=== PATIENT | female | born 1990 | race Caucasian/White ===

== ENCOUNTER 2016-08-14 20:47 | Emergency (ER) | payer OTHER ==
[~2016-08-14] VITALS: Ht 154.9 cm; Wt 65.3 kg
[~2016-08-14 20:47] MED LIST: COLA100C3 PO; IBUP60TA PO; IBUP80TA PO; PERCOCET PO; PRENTAB55 PO; TUMS500C PO
[2016-08-14 20:57] VITALS: BP 123/79
[2016-08-14] MEDS ORDERED: ASPI325T PO (21:03)
[2016-08-14] MEDS ORDERED: MULTCAP11 PO (21:03)
[2016-08-14] MEDS ORDERED: PRED20TA PO (22:43)
== END 2016-08-14 22:55 | disposition home or self-care (01) ==
LOC: M ED 21:42
DX: G56.02 Carpal tunnel syndrome, left upper limb (principal); N18.9 Chronic kidney disease, unspecified; Z86.718 Personal history of other venous thrombosis and embolism; Z88.1 Allergy status to other antibiotic agents

== ENCOUNTER 2016-09-04 17:04 | Emergency (ER) | payer OTHER ==
[~2016-09-04] VITALS: Ht 154.9 cm; Wt 69.4 kg
[~2016-09-04 17:04] MED LIST changes: +ASPI325T PO; -COLA100C3 PO; +COLA100C5 PO; +MULTCAP11 PO; +PRED20TA PO
[2016-09-04 18:00] LABS: BASO % 0.4 % (0.0-1.0); EOS # 0.2 K/mm3 (0.0-0.50); EOS % 3.1 % (0.0-3.0); LARGE UNSTAINED CELL # 0.1 K/mm3 (0.0-0.4); LARGE UNSTAINED CELL % 2.2 % (0.0-4.0); LYMPH # 2.2 K/mm3 (1.5-6.5); LYMPH % 31.5 % (24.0-44.0); MEAN CORPUSCULAR HEMOGLOBIN 32.8 pg (27.0-33.0); MEAN CORPUSCULAR HGB CONC 35.7 g/dl (32.0-36.5); MEAN CORPUSCULAR VOLUME 91.7 fl (80.0-96.0); MONO # 0.3 K/mm3 (0.0-0.8); MONO % 4.9 % (0.0-5.0); NEUTROPHILS # 3.8 K/mm3 (1.8-7.7); NEUTROPHILS % 57.9 % (36.0-66.0); PLATELET COUNT, AUTOMATED 220 k/mm3 (150-450); RED CELL DISTRIBUTION WIDTH 12.2 % (11.5-14.5); WHITE BLOOD COUNT 6.6 K/mm3 (4.0-10.0)
[2016-09-04 18:07] LABS: CONTROL LINE HCG INT CTR LINE PRESENT
[2016-09-04 18:21] LABS: ALBUMIN 4.2 GM/DL (3.2-5.2); ALBUMIN/GLOBULIN RATIO 1.35 (1.00-1.93); ALKALINE PHOSPHATASE 64 U/L (45-117); ALT/SGPT 33 U/L (12-78); AMYLASE 34 U/L (25-115); ANION GAP 3 MEQ/L (8-16); AST/SGOT 19 U/L (15-37); BILIRUBIN,DIRECT < 0.1 MG/DL (0.0-0.2); BILIRUBIN,TOTAL 0.2 MG/DL (0.2-1.0); BLOOD UREA NITROGEN 15 MG/DL (7-18); CALCIUM LEVEL 8.7 MG/DL (8.5-10.1); CARBON DIOXIDE LEVEL 31 MEQ/L (21-32); CHLORIDE LEVEL 106 MEQ/L (98-107); CREATININE FOR GFR 0.77 MG/DL (0.55-1.02); GLOMERULAR FILTRATION RATE > 60.0 (>60); GLUCOSE, FASTING 108 MG/DL (70-105); POTASSIUM SERUM 4.3 MEQ/L (3.5-5.1); SODIUM LEVEL 140 MEQ/L (136-145); TOTAL PROTEIN 7.3 GM/DL (6.4-8.2)
[2016-09-04] MEDS ORDERED: NAPR500T PO (18:49)
[2016-09-04 18:56] VITALS: BP 110/73
== END 2016-09-04 18:57 | disposition home or self-care (01) ==
LOC: M ED 18:03
DX: R10.2 Pelvic and perineal pain (principal); M32.9 Systemic lupus erythematosus, unspecified; Z87.442 Personal history of urinary calculi; Z86.718 Personal history of other venous thrombosis and embolism; Z88.1 Allergy status to other antibiotic agents; Z79.899 Other long term (current) drug therapy